=== PATIENT | female | born 1965 | race American Indian/Alaskan Native ===

== ENCOUNTER 2018-07-11 11:02 | Emergency (ER) | payer BC, OTHER ==
[2018-07-11 11:10] VITALS: BP 133/85
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
== END 2018-07-11 12:41 | disposition home or self-care (01) ==
LOC: ED 11:02
DX: M25.521 Pain in right elbow (principal); R07.89 Other chest pain; Z88.8 Allergy status to other drugs, medicaments and biological substances; Z91.040 Latex allergy status; V43.52XA Car driver injured in collision with other type car in traffic accident, initial encounter; Y93.89 Activity, other specified; Y92.488 Other paved roadways as the place of occurrence of the external cause; Y99.8 Other external cause status
CPT/HCPCS: 71046; 93005; 93010; 99283